=== PATIENT | female | born 1970 | race Caucasian/White ===

== ENCOUNTER 2016-08-26 08:28 | Day surgery (SDC) | payer OTHER ==
[2016-08-26] VITALS (8 sets, daily range): BP systolic 106–133; BP diastolic 54–87; PULSE 74–81; RESP 16–18; O2SAT 96–100
[~2016-08-26] VITALS: Ht 165.1 cm; Wt 80.7 kg
[~2016-08-26 08:28] MED LIST: HYDR25SU31 RC; KEN25CR EXT; Lactated Ringer's 1,000 ML IV SCH; VALA1000 PO
[2016-08-26] MEDS ORDERED: Ondansetron 2 mg/mL 2 mL Inj ONE (08:29)
[2016-08-26] MEDS ORDERED: fentaNYL-PF 50 mCg/mL 2 mL Inj ONE (08:29)
[2016-08-26] MEDS ORDERED: Propofol 10,000 mCg/mL 20 mL Inj ONE (08:29)
[2016-08-26] MEDS ORDERED: Dexamethasone 4 mg/mL Inj ONE (08:29)
[2016-08-26] MEDS ORDERED: Lactated Ringer's 1,000 ML IV ONE (08:55)
[2016-08-26] MEDS ORDERED: Lactated Ringer's 500 ML IV PRN (09:24)
[2016-08-26] MEDS ORDERED: Lactated Ringer's 1,000 ML IV SCH (09:24)
[2016-08-26] MEDS ORDERED: fentaNYL-PF 50 mCg/mL 2 mL Inj IVPUSH PRN (09:25)
[2016-08-26] MEDS ORDERED: hydrOXYzine Inj 25 MG/1 mL SDV IM PRN (09:25)
[2016-08-26] MEDS ORDERED: Labetalol 5 mg/mL 4 mL Inj IV PRN (09:25)
[2016-08-26] MEDS ORDERED: Ondansetron 2 mg/mL 2 mL Inj IVPUSH PRN ×2 (09:25→12:00)
[2016-08-26] MEDS ORDERED: MetoCLOpramide 5 mg/mL 2 mL Inj IVPUSH PRN ×2 (09:25→12:00)
[2016-08-26] MEDS ORDERED: Atropine 0.4 mg/mL Inj IVPUSH PRN (09:25)
[2016-08-26] MEDS ORDERED: EPHEDrine Sulfate 50 mg/mL Inj IVPUSH PRN (09:25)
[2016-08-26] MEDS ORDERED: Phenylephrine 10,000 mCg/mL Inj IVPUSH PRN (09:25)
[2016-08-26] MEDS ORDERED: HYDROmorphone 1 mg/mL Inj IVPUSH PRN ×2 (09:25→12:00)
[2016-08-26] MEDS ORDERED: EPHEDrine Sulfate 50 mg/mL Inj IM PRN (09:25)
[2016-08-26] MEDS ORDERED: hydrALAZINE 20 mg/mL Inj IVPUSH PRN (09:25)
[2016-08-26] MEDS ORDERED: Bupivacaine-MPF 0.5% W/EPI 30 mL Inj INFILTRATE ONE (11:14)
--- NOTE | 2016-08-26 11:47 | PCM.HPANE ---
Patient Data Surgeon Admitting Provider: Attending Provider:Ede Kapadia MD Primary Care Physician:Ede Kapadia MD Other Provider:[place]Mimi [place]Child[place] Anest[facility] Reason for Visit Recurrent Bartholin's Duct Cyst Ht/WT & BMI Height (Feet): 5 Height (Inches): 5 Weight (Kilograms): 80.7 Body Mass Index 29.00 Allergies Coded Allergies: No Known Allergies (Verified , 08/21/05) MRSA MRSA: No Medications Hypertension Medication: No Home Meds Incl Beta Eusebio: No Reported Medications Triamcinolone Acet (Triamcinolone Acetonide Cream)1 Applic/0.25 Gm Cr1 Applic EXT BID #60 GM Ref 0 08/25/16 Valacyclovir HCl (Valtrex)1,000 Mg Tablet1,000 Mg PO DAILY 30 Days 08/25/16 Hydrocortisone Acetate (Anusol-Hc)25 Mg Supp.rect25 Mg RC 08/25/16 History History of ENT Problems?: No Hx of Heart Problems?: No Hx of Respiratory Problem?: No Hx Neurologic Problems?: No Hx of GI Problems?: No Other GI Pertinent History: pruitis ani Other Pertinent History: herpes simplex type 1 infection Skin History: Denies:: History Skin Disorders? Pressure Ulcers Hx Musculoskeletal Problems?: No Hx Any Other Health Problems?: No Hx Alcohol Use: YesHx Substance Use: NoHave You Smoked inLast 12 mo: No Stop/Bang S-Snoring: Do You Snore Loudly: No T-Tired: feel tired, fatigued: No O-Obsered: Observed not breath: No P-Blood Pressure: treated: No B- Body Mass Index > 35 kg/m2: No A- Age over 50: No N- Neck Large Circumference: No G- Gender Male: No RENALDO Total Score: 0 RENALDO Risk Assessment: Low Risk, <3 Yes Risk Assessment Category Category 1A: Patient has history of documented sleep apnea, and HAS NOT received any narcotic, sedative or anesthesia administration during this stay. Category 1B: Patient has history of documented sleep apnea, and HAS received any narcotic , sedative or anesthesia administration during this stay Category 2: Patient has SUSPECTED Obstructive Sleep Apnea, and HAS received any narcotic , sedative or anesthesia administration during this stay. Category 3: Patient has SUSPECTED Obstructive Sleep Apnea and HAS NOT received narcotic, sedative or anesthesia administration during this stay. Category 4: Outpatient in Procedural Areas with known sleep apnea or who screen positive for High Risk via the STOP/BANG questionnaire. Exam Exam Vital Signs Vital Signs Date Time Temp Pulse Resp B/P Pulse Ox O2 Delivery O2 Flow Rate FiO2 08/26/16 08:43 36.3 74 18 124/87 99 Room Air General Appearance: Alert, Oriented X3, Cooperative, No Acute Distress HEENT/AIRWAY: MP 2 Lungs: Clear to Auscultation, Normal Air Movement Heart: Exam Unremarkable, Regular Rate/Rhythm, No Murmurs/Rubs/Gallops Plan Impression Patient chart reviewed, patient interviewed and anesthestic plan with risks, benefits, and alternatives discussed, and informed consent obtained. ASA Physical Status: ASA2 Mod Systemic Disease Anesthetic Plan: GA Bene/Risks/Altern/Consents: Yes HP Complete Prior to Induction: Yes Uche Recinos MD Aug 26, 2016 08:53
[2016-08-26] MEDS ORDERED: HYDROcodone-APAP 5-325 mg Tablet PO PRN (12:00)
--- NOTE | 2016-08-26 12:06 | PCM.ANEP1 ---
Post Anesthesia Phase 1 PACU Phase 1 Assessment Vital Signs Vital Signs Date Time Temp Pulse Resp B/P Pulse Ox O2 Delivery O2 Flow Rate FiO2 08/26/16 08:43 36.3 74 18 124/87 99 Room Air Anesthetic Administered: GA Level of Alertness: Sleepy, easy to arouse SHEPARD's with Equal Strength: Yes Pain: No Oxygen Delivery: Simple Mask Lungs: Clear to Auscultation, Normal Air Movement Summary VSS Uche Recinos MD Aug 26, 2016 12:05
--- NOTE | 2016-08-26 12:35 | PCM.ANEP2 ---
Post Anesthesia Evaluation ASA/CMS Post Anesthesia VS in Patient's Normal Range?: Yes Resp Stable; Airway Patent?: Yes CV Function & Hydration Stable: Yes Mental Status Recovered?: Yes Pain control Satisfactory?: Yes N/V Control Satisfactory?: Yes Uche Recinos MD Aug 26, 2016 12:35
--- NOTE | 2016-08-28 00:51 | OP ---
[address] [address] OPERATIVE REPORT PATIENT: ELIZABETH RICHMOND : 1970 MR#: [id number] ADMIT: 08/26/2016 JOB ID: [id number] DATE OF SURGERY: SURGEON: On the case: Ede Kapadia MD RAILROAD FIRER: None. ANESTHESIA: General. PREOPERATIVE DIAGNOSIS(ES): Recurrent left-sided Bartholin's duct cyst, having failed incision and drainage procedures, needle aspiration, Word catheter placement, etc. POSTOPERATIVE DIAGNOSIS(ES): INCOMPLETE DICTATION: Dictation ends here.
--- NOTE | 2016-08-28 10:07 | OP ---
[address] [address] OPERATIVE REPORT PATIENT: ELIZABETH RICHMOND : 1970 MR#: [id number] ADMIT: 08/26/2016 JOB ID: [id number] DATE OF SURGERY: 08/26/2016 SURGEON: Ede Kapadia MD. ANESTHESIA: General. PREOPERATIVE DIAGNOSIS(ES): Recurrent left Bartholin duct cyst, symptomatic. POSTOPERATIVE DIAGNOSIS(ES): Recurrent left Bartholin duct cyst, symptomatic. PROCEDURES PERFORMED: Marsupialization of left Bartholin duct cyst. FINDINGS AT SURGERY: There was a 3.5 cm Bartholin duct cyst on the left side. There was no associated erythema or edema. At procedure close, Bartholin duct cyst had been completely collapsed, the drainage point and marsupialization at the inner aspect of the labia just outside the left labia, just outside of the hymenal ring. Drainage from the cyst with thick brownish, purulent potentially, although no foul odor or associated local signs of infection nor excessive intracystic pressure. It certainly is anticipated that the patient will do very well during the postoperative time frame. There is an excellent chance that she will have resolution of the ongoing/recurrent left Bartholin duct cyst issues, time will tell. DESCRIPTION OF PROCEDURE: The patient was placed in the supine position on the operating table and general anesthesia was induced. She was then repositioned in the low dorsal lithotomy position, and prepped and draped in usual sterile manner. Appropriate time-out was then taken. Marcaine with epinephrine solution was injected at the inner aspect of the left labia posteriorly to mid position, just outside of the hymenal ring. A 2 cm incision was then made parallel to and just outside of the hymenal ring, with drainage of dark brownish, thick, nonodorous material. The cyst was investigated with palpating finger and instrumentation, and there was no additional pocket. Cyst lining was completed smooth. The cyst pocket was completely and thoroughly irrigated, followed by placement of interrupted stitches of 2-0 Vicryl suture completely around the new cyst opening, tacking the cyst lining to the skin at the incisional opening. This effectively marsupialized the cyst. There was no bleeding occurring at this point. Blood loss was minimal throughout the case. The procedure was thus complete. Instrument, needle and sponge counts were all found to be correct. The patient returned to supine position and awakened and taken to the recovery room. ESTIMATED BLOOD LOSS: Scant. COMPLICATIONS: None. PROGNOSIS: Good for surgical recovery.
== END 2016-08-26 23:59 | disposition home or self-care (01) ==
LOC: SAS 08:28
PROVIDERS: ATTEND Obstetrics & Gynecology
DX: N75.0 Cyst of Bartholin's gland (principal)
CPT/HCPCS: 56440; J1100; J2250; J2405; J7120